=== PATIENT | female | born 1970 ===

== ENCOUNTER 2018-08-25 13:56 | Emergency (ER) | payer OTHER ==
[2018-08-25 14:44] VITALS: RESP 16; TEMP 98.5; O2SAT 100
--- NOTE | 2018-08-25 14:58 | ED PDOC ---
Lower Extremity Pain/Injury Time Seen by Provider: 08/25/18 14:49 Chief Complaint (Nursing): Lower Extremity Problem/Injury Chief Complaint (Provider): Bilateral knee pain History Per: Patient History/Exam Limitations: no limitations Onset/Duration Of Symptoms: Worse Since (today) Current Symptoms Are (Timing): Still Present Additional Complaint(s): Tamara Steiner is a 48 year old female, with no significant past medical history, who presents to the emergency department complaining of ongoing bilateral knee pain that worsen today. Patient states pain is mostly on the right compared to left knee. She notes pain is exacerbated with flexion and extension of knees. She took Naproxen for pain today, last dose at 10:00. She denies any falls, injuries or other medical complaints. PMD: Xiomy Moreno Past Medical History Reviewed: Historical Data, Nursing Documentation, Vital Signs Vital Signs: Last Vital Signs Temp 98.5 F 08/25/18 14:39 Pulse 58 L 08/25/18 14:39 Resp 16 08/25/18 14:39 BP 177/88 H 08/25/18 14:39 Pulse Ox 100 08/25/18 14:39 - Medical History PMH: No Chronic Diseases - Surgical History Surgical History: No Surg Hx - Family History Family History: States: Unknown Family Hx - Home Medications Home Medications: Ambulatory Orders Medication Instructions Recorded Cephalexin [Keflex] 500 mg PO QID #28 cap 04/11/15 Naproxen 375 mg PO Q8 PRN #21 tab 04/11/15 Cyclobenzaprine HCl [Flexeril] 10 mg PO Q8 #15 tab 06/22/15 Naproxen 375 mg PO Q8 PRN #21 tablet 08/25/18 - Allergies Allergies/Adverse Reactions: Allergies Allergy/AdvReac Type Severity Reaction Status Date / Time No Known Allergies Allergy Verified 06/21/15 23:12 Review of Systems ROS Statement: Except As Marked, All Systems Reviewed And Found Negative Musculoskeletal: Positive for: Leg Pain (bilateral knee pain) Physical Exam - Reviewed Nursing Documentation Reviewed: Yes Vital Signs Reviewed: Yes - Physical Exam Appears: Positive for: No Acute Distress Head Exam: Positive for: ATRAUMATIC, NORMAL INSPECTION, NORMOCEPHALIC Skin: Positive for: Normal Color, Warm, Dry Eye Exam: Positive for: Normal appearance, EOMI, PERRL Neck: Positive for: Normal, Painless ROM Extremity: Positive for: Normal ROM (Able to flex and extend knees), Tenderness (Elicited to medial aspect of right knee), Other (Multiple varicosities noted). Negative for: Calf Tenderness, Deformity, Swelling (No effusion noted) Neurological/Psych: Positive for: Awake, Alert, Normal Tone - ECG O2 Sat by Pulse Oximetry: 100 (RA) Pulse Ox Interpretation: Normal - Progress ED Course And Treament: xry of bilateral knee: no fx no effusio noted; no djd noted d/w patient Medical Decision Making Medical Decision Making: Time: Initial Impression: B/L knee pain Initial Plan: --Knee 3 views BI [RAD] --Reevaluation Scribe Attestation: Documented by Dong Mcdonough, acting as a scribe for Raffi Aguilar PA-C. Provider Scribe Attestation: All medical record entries made by the Scribe were at my direction and personally dictated by me. I have reviewed the chart and agree that the record accurately reflects my personal performance of the history, physical exam, medical decision making, and the department course for this patient. I have also personally directed, reviewed, and agree with the discharge instructions and disposition. Disposition - Clinical Impression Clinical Impression: Knee pain - Patient ED Disposition Is Patient to be Admitted: No - Disposition Referrals: [facility] [Outside] Disposition: Routine/Home Disposition Time: 15:47 Condition: FAIR Prescriptions: Naproxen 375 mg PO Q8 PRN #21 tablet PRN Reason: Pain, Moderate (4-7) Instructions: Knee Pain Forms: [facility] ED School/Work Excuse Print Language: MALTESE
--- NOTE | 2018-08-25 15:56 | RAD ---
Date of service: 08/25/2018 PROCEDURE: Bilateral Knee Radiographs. HISTORY: knee [place] COMPARISON: None. FINDINGS: BONES: No evidence of acute displaced fracture nor dislocation JOINTS: Appears to be mild joint space narrowing of the lateral margins of the lateral compartments bilateral knees with small marginal osteophyte formation arising from the distal lateral femoral condyles. Additionally, small posterior patellar osteophytes are present larger right larger than left. Suspect small suprapatellar joint effusions. SOFT TISSUES: Right Knee: Normal. Left Knee: Normal. JOINT EFFUSION: Right Knee: None. Left Knee: None. OTHER FINDINGS: None. IMPRESSION: No acute fractures. Mild degenerative osteoarthritis. Suspect small suprapatellar joint effusions.
[2018-08-25 16:01] VITALS: BP 147/83; PULSE 60
== END 2018-08-25 16:01 | disposition home or self-care (01) ==
LOC: H.ER 13:56
DX: M17.0 Bilateral primary osteoarthritis of knee (principal)